=== PATIENT | male | born 1955 | race Caucasian/White ===

== ENCOUNTER 2018-01-12 09:40 | Emergency (ER) | payer OTHER ==
[~2018-01-12] VITALS: Ht 190.5 cm; Wt 100.0 kg
[2018-01-12 10:02] VITALS: BP 116/75
== END 2018-01-12 13:35 | disposition left against medical advice (07) ==
LOC: ER 09:40
DX: M79.601 Pain in right arm (principal); M79.89 Other specified soft tissue disorders; Z53.21 Procedure and treatment not carried out due to patient leaving prior to being seen by health care provider

== ENCOUNTER → 2021-03-09 | Outpatient (CLI) | payer MEDICARE | END | disposition home or self-care (01) | LOC: RAD 09:40 | PROVIDERS: ATTEND Psychiatry & Neurology Neurology | DX: R68.89 Other general symptoms and signs (principal); R42 Dizziness and giddiness | CPT/HCPCS: 95816 ==

== ENCOUNTER 2022-02-12 09:04 | Emergency (ER) | payer MEDICARE ==
[~2022-02-12] VITALS: Ht 190.5 cm; Wt 100.0 kg
[2022-02-12 09:14] VITALS: BP 145/79
== END 2022-02-12 15:27 | disposition left against medical advice (07) ==
LOC: ER 09:05
DX: R10.9 Unspecified abdominal pain (principal); Z53.21 Procedure and treatment not carried out due to patient leaving prior to being seen by health care provider